=== PATIENT | female | born 1970 | race Caucasian/White ===

== ENCOUNTER 2016-12-12 22:22 | Emergency (ER) | payer OTHER ==
[2016-12-13 00:38] VITALS: BP 174/88
== END 2016-12-13 00:38 | disposition home or self-care (01) ==
LOC: ED 22:22
DX: M70.21 Olecranon bursitis, right elbow (principal); E11.9 Type 2 diabetes mellitus without complications; R03.0 Elevated blood-pressure reading, without diagnosis of hypertension; Y93.89 Activity, other specified
CPT/HCPCS: J1885

== ENCOUNTER 2016-12-27 21:40 | Emergency (ER) | payer OTHER ==
[2016-12-27 22:43] LABS: BASOPHIL % 0.5 % (0-2); PLATELET COUNT 228 x10^3mcL (130-400); RED CELL DISTRIBUTION WIDTH 13.1 % (11.5-14.5)
[2016-12-27 22:53] LABS: CALCIUM 8.7 mg/dL (8.5-10.1); CARBON DIOXIDE 28.7 mmol/L (21-32); CHLORIDE SERUM 106 mmol/L (98-107); CREATININE SERUM 0.9 mg/dL (0.6-1.0); GFR1 > 60 mL/min; GLUCOSE SERUM 188 mg/dL (74-106); POTASSIUM SERUM 3.8 mmol/L (3.5-5.1); SODIUM SERUM 142 mmol/L (136-145)
[2016-12-27 22:57] LABS: ALKALINE PHOSPHATASE 62 U/L (46-116); ALT/SGPT 28 U/L (14-59); AST/SGOT 22 U/L (15-37); BILIRUBIN TOTAL 0.37 mg/dL (0.20-1.00); TOTAL PROTEIN, SERUM 6.9 g/dL (6.4-8.2)
[2016-12-27 23:05] LABS: ALBUMIN 3.1 g/dL (3.4-5.0)
[2016-12-27 23:36] VITALS: BP 136/72
== END 2016-12-27 23:37 | disposition home or self-care (01) ==
LOC: ED 21:40
PROVIDERS: Emergency Medicine
DX: I87.8 Other specified disorders of veins (principal); E11.9 Type 2 diabetes mellitus without complications; Z79.4 Long term (current) use of insulin; Z79.84 Long term (current) use of oral hypoglycemic drugs
CPT/HCPCS: 36415; 83880

== ENCOUNTER 2017-05-29 22:15 | Emergency (ER) | payer OTHER ==
[~2017-05-29] VITALS: Ht 172.7 cm; Wt 94.8 kg
[2017-05-29 23:23] LABS: BASOPHIL % 0.6 % (0-2); PLATELET COUNT 244 x10^3mcL (130-400); RED CELL DISTRIBUTION WIDTH 13.6 % (11.5-14.5)
[2017-05-29 23:25] LABS: microscopic required? YES; urine erythrocyte TRACE (NEGATIVE)
[2017-05-29 23:43] LABS: CALCIUM 9.3 mg/dL (8.5-10.1); CARBON DIOXIDE 20.5 mmol/L (21-32); CHLORIDE SERUM 97 mmol/L (98-107); GFR1 > 60 mL/min; GLUCOSE SERUM 375 mg/dL (74-106); POTASSIUM SERUM 3.8 mmol/L (3.5-5.1); SODIUM SERUM 132 mmol/L (136-145)
[2017-05-29 23:58] LABS: ALBUMIN 3.6 g/dL (3.4-5.0); BILIRUBIN DIRECT 0.13 mg/dL (0.0-0.2); BILIRUBIN TOTAL 0.5 mg/dL (0.20-1.00)
[2017-05-30 00:04] LABS: TOTAL PROTEIN, SERUM 8.3 g/dL (6.4-8.2)
[2017-05-30 01:58] VITALS: BP 134/83
== END 2017-05-30 01:58 | disposition home or self-care (01) ==
LOC: ED 22:15
PROVIDERS: Emergency Medicine
DX: L02.211 Cutaneous abscess of abdominal wall (principal); E11.65 Type 2 diabetes mellitus with hyperglycemia; N76.0 Acute vaginitis
CPT/HCPCS: 82962; 87491; 87591; J0690; J1815; J1885; J2001; J2270; J7030; Q0162

== ENCOUNTER 2018-05-25 22:54 | Emergency (ER) | payer OTHER ==
[~2018-05-25] VITALS: Ht 172.7 cm; Wt 99.8 kg
[2018-05-25 23:02] VITALS: Ht 172.7 cm; Wt 99.8 kg
[2018-05-26 03:13] VITALS: BP 136/84
== END 2018-05-26 03:13 | disposition home or self-care (01) ==
LOC: ED 22:54
DX: J40 Bronchitis, not specified as acute or chronic (principal); I10 Essential (primary) hypertension; E11.9 Type 2 diabetes mellitus without complications; Z98.890 Other specified postprocedural states
CPT/HCPCS: 82962; J7613

== ENCOUNTER 2018-12-28 13:10 | Inpatient (IN) | payer OTHER ==
[~2018-12-28] VITALS: Ht 172.7 cm; Wt 96.2 kg
[2018-12-28 13:18] VITALS: Ht 172.7 cm; Wt 96.2 kg
[2018-12-28 14:14] LABS: BASOPHIL % 0.5 % (0-2); PLATELET COUNT 199 x10^3mcL (130-400); RED CELL DISTRIBUTION WIDTH 12.6 % (11.5-14.5)
[2018-12-28 14:34] LABS: CALCIUM 8.6 mg/dL (8.5-10.1); CARBON DIOXIDE 27.2 mmol/L (21-32); CHLORIDE SERUM 107 mmol/L (98-107); CREATININE SERUM 0.7 mg/dL (0.6-1.0); GFR1 > 60 mL/min; GLUCOSE SERUM 118 mg/dL (74-106); POTASSIUM SERUM 3.3 mmol/L (3.5-5.1); SODIUM SERUM 143 mmol/L (136-145)
[2018-12-28 14:38] LABS: ALBUMIN 3.3 g/dL (3.4-5.0); ALKALINE PHOSPHATASE 107 U/L (46-116); ALT/SGPT 39 U/L (14-59); AST/SGOT 25 U/L (15-37); BILIRUBIN TOTAL 0.74 mg/dL (0.20-1.00); TOTAL PROTEIN, SERUM 7.6 g/dL (6.4-8.2)
[2018-12-28] MEDS ORDERED: ASPIR 8181 MG PO (17:00)
[2018-12-28] MEDS ORDERED: FISH OIL 1,0001 EAC1 PO (17:01)
[2018-12-28] MEDS ORDERED: PAROXETINE HCL20 M1 PO (17:01)
[2018-12-28] MEDS ORDERED: ISOSORBIDE MONO60 MG PO (17:01)
[2018-12-28] MEDS ORDERED: METFORMIN HCL1000 MG PO (17:01)
[2018-12-28] MEDS ORDERED: ADMELOG100 UNIT/1 SQ (17:02)
[2018-12-28] MEDS ORDERED: BASAGLAR K100 UNIT/1 SQ (17:02)
[2018-12-28 18:13] VITALS: BP 132/79
[2018-12-28 20:10] VITALS: BP 143/76
[2018-12-29 01:10] LABS: UA SPECIFIC GRAVITY >=1.030 (1.005-1.035); microscopic required? YES; urine erythrocyte NEGATIVE (NEGATIVE)
[2018-12-29 02:47] LABS: AMPHETAMINE QUAL UR NONE DETECTED (See below)
[2018-12-29 05:40] VITALS: BP 114/70
[2018-12-29 06:36] LABS: BASOPHIL % 0.5 % (0-2); PLATELET COUNT 191 x10^3mcL (130-400); RED CELL DISTRIBUTION WIDTH 13.3 % (11.5-14.5)
[2018-12-29 06:51] LABS: CALCIUM 8.9 mg/dL (8.5-10.1); CARBON DIOXIDE 29.6 mmol/L (21-32); CHLORIDE SERUM 109 mmol/L (98-107); CREATININE SERUM 0.7 mg/dL (0.6-1.0); GFR1 > 60 mL/min; GLUCOSE SERUM 72 mg/dL (74-106); MAGNESIUM 1.9 mg/dL (1.8-2.4); PHOSPHOROUS 3.9 mg/dL (2.5-4.9); POTASSIUM SERUM 3.7 mmol/L (3.5-5.1); SODIUM SERUM 146 mmol/L (136-145)
[2018-12-29 08:39] VITALS: BP 111/64
[2018-12-29 13:08] VITALS: BP 110/68
[2018-12-29 17:07] VITALS: BP 116/66
[2018-12-29 20:15] VITALS: BP 126/75
[2018-12-30 05:13] VITALS: BP 127/74
[2018-12-30 07:12] LABS: BASOPHIL % 0.6 % (0-2); PLATELET COUNT 179 x10^3mcL (130-400); RED CELL DISTRIBUTION WIDTH 13.1 % (11.5-14.5)
[2018-12-30 07:50] LABS: CALCIUM 8.5 mg/dL (8.5-10.1); CARBON DIOXIDE 28.1 mmol/L (21-32); CHLORIDE SERUM 107 mmol/L (98-107); CREATININE SERUM 0.7 mg/dL (0.6-1.0); GFR1 > 60 mL/min; GLUCOSE SERUM 120 mg/dL (74-106); MAGNESIUM 1.9 mg/dL (1.8-2.4); PHOSPHOROUS 3.4 mg/dL (2.5-4.9); POTASSIUM SERUM 3.8 mmol/L (3.5-5.1); SODIUM SERUM 142 mmol/L (136-145)
[2018-12-30 08:50] VITALS: BP 121/74
[2018-12-30 12:26] VITALS: BP 111/58
[2018-12-30 17:11] VITALS: BP 116/64
[2018-12-30 19:54] VITALS: BP 128/72
[2018-12-31 05:44] VITALS: BP 116/66; BP 166/66
[2018-12-31 05:45] VITALS: BP 116/66
[2018-12-31 07:15] LABS: BASOPHIL % 0.5 % (0-2); PLATELET COUNT 183 x10^3mcL (130-400); RED CELL DISTRIBUTION WIDTH 12.6 % (11.5-14.5)
[2018-12-31 07:18] LABS: CALCIUM 8.5 mg/dL (8.5-10.1); CARBON DIOXIDE 28.1 mmol/L (21-32); CHLORIDE SERUM 106 mmol/L (98-107); CREATININE SERUM 0.7 mg/dL (0.6-1.0); GFR1 > 60 mL/min; GLUCOSE SERUM 142 mg/dL (74-106); POTASSIUM SERUM 3.9 mmol/L (3.5-5.1); SODIUM SERUM 141 mmol/L (136-145)
[2018-12-31 09:04] VITALS: BP 122/70
[2018-12-31 09:49] VITALS: BP 122/70
[2018-12-31] MEDS ORDERED: LIPI20 PO (12:49)
[2018-12-31] MEDS ORDERED: ZES5 PO (12:49)
== END 2018-12-31 15:11 | disposition home or self-care (01) | DRG 198 ==
LOC: ED 13:10 → MU 16:36 → DU 16:36 → EDBEDREQ 17:13 → DU 17:48 → MU 12-30 15:21
PROVIDERS: ADMIT General Practice
DX: I20.0 Unstable angina (principal); E11.65 Type 2 diabetes mellitus with hyperglycemia; E44.1 Mild protein-calorie malnutrition; K31.84 Gastroparesis; M41.9 Scoliosis, unspecified; K59.00 Constipation, unspecified; I44.4 Left anterior fascicular block; I45.10 Unspecified right bundle-branch block; I10 Essential (primary) hypertension; E87.6 Hypokalemia; E78.5 Hyperlipidemia, unspecified; F32.9 Major depressive disorder, single episode, unspecified; F17.210 Nicotine dependence, cigarettes, uncomplicated; Z68.32 Body mass index [BMI] 32.0-32.9, adult; Z79.82 Long term (current) use of aspirin; Z79.4 Long term (current) use of insulin; Z79.84 Long term (current) use of oral hypoglycemic drugs
CPT/HCPCS: 82962; 83880; 85378; 99406; G0378; J8597